=== PATIENT | male | born 1960 | race Caucasian/White ===

== ENCOUNTER 2018-05-08 14:15 | Emergency (ER) | payer OTHER ==
[~2018-05-08] VITALS: Ht 182.9 cm; Wt 77.1 kg
[2018-05-08] MEDS ORDERED: KETOROLAC TROMETHAMINE 60 MG/2 ML VIAL IM NR (14:30)
[2018-05-08] MEDS ORDERED: DICYCLOMINE HCL 20 MG/2 ML VIAL IM ONE (14:30)
--- NOTE | 2018-05-08 14:36 | NUR ---
Pt is given underwear to give support to his testicles.
[2018-05-08 16:04] LABS: BASOPHILS % 0.2 % (0.0-1.0); EOSINOPHILS # (AUTO) 0.1 (0.0-0.4); EOSINOPHILS % 0.7 % (0.0-6.0); HEMATOCRIT 41.1 % (38.2-49.6); HEMOGLOBIN 13.6 g/dL (14.0-18.0); LYMPHOCYTES # (AUTO) 1.3 (1.0-3.2); LYMPHOCYTES % 10.5 % (18.0-39.1); MEAN CORPUSCULAR HEMOGLOBIN 30.6 pg (28-32); MEAN CORPUSCULAR HGB CONC 33.1 g/dL (31-35); MEAN CORPUSCULAR VOLUME 92.4 fL (81-99); MONOCYTES # (AUTO) 1.2 (0.2-0.8); MONOCYTES % 9.4 % (4.4-11.3); NEUTROPHILS # (AUTO) 9.8 (2.1-6.9); NEUTROPHILS % 78.8 % (38.7-80.0); PLATELET COUNT 318 x10e3/uL (140-360); RED BLOOD COUNT 4.45 x10e6/uL (4.3-5.7); RED CELL DISTRIBUTION WIDTH 13.4 % (11.7-14.4)
[2018-05-08 16:19] LABS: BLOOD UREA NITROGEN 10 mg/dL (7-26); BUN/CREATININE RATIO 11 (6-25); CARBON DIOXIDE 24 mmol/L (22-29); CHLORIDE 98 mmol/L (98-107); EST GLOMERULAR FILTRATION RATE > 60 ML/MIN (60-); GLUCOSE 130 mg/dL (74-118); SODIUM 133 mmol/L (136-145)
[2018-05-08] MEDS ORDERED: FENTANYL CITRATE/PF 100MCG/2 ML INJ IV NR (16:45)
--- NOTE | 2018-05-08 17:05 | Diagnostic Imaging Report ---
EXAM: Scrotal Ultrasound INDICATION: Testicular pain. Torsion COMPARISON: None TECHNIQUE: Transverse and longitudinal images were obtained of the scrotum with grayscale imaging, color Doppler and spectral waveform analysis. FINDINGS: Right testis: Size: 4.7 x 2.4 x 2.6 cm, normal in size. Echogenicity: Normal Mass/Cysts: None Left testis: Size: 4.1 x 3.0 x 3.5 cm, normal in size. Echogenicity: Normal Mass/Cysts: None Epididymis: Appearance: Enlarged left epididymal tail measuring 2.0 x 1.4 x 2.2 cm Mass/Cysts: 0.5 cm right epididymal cyst. Extratesticular: Masses: None Fluid collections: Complex hydrocele in the left scrotum measuring approximate 5.1 cm. Doppler: Normal arterial flow to both testes and symmetrical flow on color Doppler evaluation is seen. No evidence of testicular torsion. IMPRESSION: No evidence of testicular torsion. 5.1 cm complex left hydrocele. 0.5 cm right epididymal cyst. Enlarged left epididymal tail. Signed by: Dr. José Oakley M.D. on 05/08/2018 5:02 PM
[2018-05-08] MEDS ORDERED: KETOROLAC TROME10 MG PO (17:59)
[2018-05-08] MEDS ORDERED: FLAGYL500 MG PO (17:59)
[2018-05-08] MEDS ORDERED: ULTRAM50 MG PO (17:59)
[2018-05-08] MEDS ORDERED: LEVAQUIN500 MG PO (17:59)
[2018-05-08] MEDS ORDERED: LEVOFLOXACIN 500 MG TAB PO ONE (18:00)
[2018-05-08] MEDS ORDERED: METRONIDAZOLE 500 MG TAB PO ONE (18:00)
[2018-05-08 18:15] LABS: CLARITY,URINE CLEAR (CLEAR); COLOR,URINE COLORLESS (YELLOW)
[2018-05-08 18:23] LABS: NITRITE,URINE POSITIVE (NEGATIVE)
[2018-05-08 18:24] LABS: BILIRUBIN,URINE NEGATIVE (NEGATIVE); KETONES,URINE NEGATIVE (NEGATIVE); LEUKOCYTE ESTERASE ,URINE 2+ (NEGATIVE); PROTEIN,URINE DIPSTICK NEGATIVE (NEGATIVE); URINE UROBILINOGEN 0.2 mg/dL (0.2 - 1)
[2018-05-08 18:37] LABS: EPITHELIAL CELLS,URINE FEW /LPF
[2018-05-08 18:38] LABS: WBC,URINE (MAN) 21-50 /HPF (0-5)
[2018-05-08 18:39] LABS: BACTERIA,URINE FEW /HPF; RBC,URINE 0-5 /HPF (0-5)
[2018-05-08 18:40] LABS: TRANSITIONAL EPI CELLS,URINE MODERATE
== END 2018-05-08 18:08 | disposition home or self-care (01) ==
LOC: ER 14:15
DX: N50.812 Left testicular pain (principal); N43.3 Hydrocele, unspecified; I10 Essential (primary) hypertension
CPT/HCPCS: 36415; 76870; 80048; 81001; 85025; 93976; 99284; J0500; J1885

== ENCOUNTER 2018-05-10 10:05 | Observation (INO) | payer MEDICARE, OTHER ==
[~2018-05-10] VITALS: Ht 182.9 cm; Wt 77.2 kg
[~2018-05-10 10:05] MED LIST: FLAGYL500 MG PO; KETOROLAC TROME10 MG PO; LEVAQUIN500 MG PO; ULTRAM50 MG PO
--- OUTSIDE RECORDS SUMMARY | 2018-05-10 10:08 | XMS REPORT ---
Author Author [facility] Address Unknown Phone Unavailable Care Team Providers Care Cold Header Name Role Phone Colten MORRISON Unavailable Unavailable Problems This patient has no known problems. Allergies, Adverse Reactions, Alerts This patient has no known allergies or adverse reactions. Medications This patient has no known medications. Results Test Description Test Time Test Comments Text Results Atomic Results Result Comments US TESTICULAR DOPPLER LTD 2018-05-08 16:59:00 [place] [address] Patient Name: CHRISTY MAR II MR #: [id number] : 1960 Age/Sex: 57/M Req #: [id number] Adm Physician: Ordered by: TIMUR MORRISON MD Report #: [id number] Location: ER Room/Bed: Procedure: [id number] US/US TESTICULAR DOPPLER LTD Exam Date: Exam Time: REPORT STATUS: Signed EXAM: Scrotal Ultrasound INDICATION: Testicular pain. T orsion COMPARISON: None TECHNIQUE: Transverse and longitudinal images were obtained of the scrotum with grayscale imaging, color Doppler and spectral waveform analysis. FINDINGS: Right testis: Size: 4.7 x 2.4 x 2.6 cm, normal in size. Echogenicity: Normal Mass/Cysts: None Left testis: Size: 4.1 x 3.0 x 3.5 cm, normal in size. Echogenicity: Normal Mass/Cysts: None Epididymis: Appearance: Enlarged left epididymal tail measuring 2.0 x 1.4 x 2.2 cm Mass/Cysts: 0.5 cm right epididymal cyst. Extratesticular: Masses: None Fluid collections: Complex hydrocele in the left scrotum measuring approximate 5.1 cm. Doppler: Normal arterial flow to both testes and symmetrical flow on color Doppler evaluation is seen. No evidence of testicular torsion. IMPRESSION: No evidence of testicular torsion. 5.1 cm complex left hydrocele. 0.5 cm right epididymal cyst. Enlarged left epididymal tail. Signed by: Dr. José Oakley M.D. on 05/08/2018 5:02 PM Dictated By: JOSÉ OAKLEY MD, MD 01 Transcribed By: MAC on 05/08/181701 COPY TO: TIMUR MORRISON MD TESTICULAR 2018-05-08 16:59:00 [place] [address] Patient Name: CHRISTY MAR II MR #: [id number] : 1960 Age/Sex: 57/M Req #: [id number] Adm Physician: Ordered by: TIMUR MORRISON MD Report #: [id number] Location: Room/Bed: Procedure: [id number] US/US TESTICULAR Exam Date: Exam Time: REPORT STATUS: Signed EXAM: Scrotal Ultrasound INDICATION: Testicular pain. Torsion COMPARISON: None TECHNIQUE: Transverse and longitudinal images were obtained of the scrotum with grayscale imaging, color Doppler and spectral waveform analysis. FINDINGS: Right testis: Size: 4.7 x 2.4 x 2.6 cm, normal in size. Echogenicity: Normal Mass/Cysts: None Left testis: Size: 4.1 x 3.0 x 3.5 cm, normal in size. Echogenicity: Normal Mass/Cysts: None E pididymis: Appearance: Enlarged left epididymal tail measuring 2.0 x 1.4 x 2.2 cm Mass/Cysts: 0.5 cm right epididymal cyst. Extratesticular: Masses: None Fluid collections: Complex hydrocele in the left scrotum measuring approximate 5.1 cm. Doppler: Normal arterial flow to both testes and symmetrical flow on color Doppler evaluation is seen. No evidence of testicular torsion.
[2018-05-10] MEDS ORDERED: MORPHINE SULFATE 2 MG/ML SYR 1ML IV PRN (10:15)
[2018-05-10] MEDS ORDERED: ONDANSETRON HCL INJ 2MG/ML 2ML 2 MG/ML VIAL IV PRN (10:15)
[2018-05-10] MEDS ORDERED: PIPER-TAZ 3.375 GM 50 ML IV STA (10:22)
[2018-05-10] MEDS ORDERED: GENTAMICIN 80MG/NS 100 ML 100 ML IV STA (10:47)
[2018-05-10] MEDS ORDERED: SODIUM CHLORIDE 0.9% 1000ML 1,000 ML ONE (10:54)
--- NOTE | 2018-05-10 10:55 | NUR ---
Patient refusing straight cath at this time. Per Dr. Hilliard, urine must be obtained before starting IV antibiotics. Fluid bolus started at this time. Awaiting urine sample from patient. NATHANIEL Costello notified.
[2018-05-10] MEDS ORDERED: SODIUM CHLORIDE 0.9% 1000ML 1,000 ML IV ONE (11:00)
[2018-05-10] MEDS ORDERED: GENTAMICIN SULFATE 320 MG in SODIUM CHLORIDE 0.9% 100 ML 100 ML IV ONE (11:15)
[2018-05-10] MEDS ORDERED: HYDROMORPHONE 2MG/ML 2 MG/ML ML IV ONE (11:15)
[2018-05-10 11:16] LABS: BASOPHILS % 0.3 % (0.0-1.0); EOSINOPHILS # (AUTO) 0.1 (0.0-0.4); HEMATOCRIT 38.9 % (38.2-49.6); HEMOGLOBIN 12.9 g/dL (14.0-18.0); LYMPHOCYTES # (AUTO) 1.6 (1.0-3.2); LYMPHOCYTES % 14.6 % (18.0-39.1); MEAN CORPUSCULAR HEMOGLOBIN 30.4 pg (28-32); MEAN CORPUSCULAR HGB CONC 33.2 g/dL (31-35); MEAN CORPUSCULAR VOLUME 91.7 fL (81-99); MONOCYTES # (AUTO) 1.3 (0.2-0.8); MONOCYTES % 12.2 % (4.4-11.3); NEUTROPHILS # (AUTO) 7.8 (2.1-6.9); NEUTROPHILS % 71.5 % (38.7-80.0); PLATELET COUNT 316 x10e3/uL (140-360); RED BLOOD COUNT 4.24 x10e6/uL (4.3-5.7); RED CELL DISTRIBUTION WIDTH 13.3 % (11.7-14.4)
--- NOTE | 2018-05-10 11:20 | NUR ---
WALKING ROUNDS WITH REY WHYTE. REPORT RECEIVED. PATIENT CARE ASSUMED
[2018-05-10] MEDS: LEVOFLOXACIN 500MG/D5W 100ML 100 ML IV SCH (11:25)
[2018-05-10 11:35] LABS: ALANINE AMINOTRANSFERASE 41 IU/L (0-55); ALBUMIN 3.5 g/dL (3.5-5.0); ALBUMIN/GLOBULIN RATIO 1.2 (0.8-2.0); ALKALINE PHOSPHATASE 103 IU/L (40-150); ANION GAP 15.5 mmol/L (8-16); BLOOD UREA NITROGEN 17 mg/dL (7-26); BUN/CREATININE RATIO 14 (6-25); CALCIUM 9.1 mg/dL (8.4-10.2); CARBON DIOXIDE 22 mmol/L (22-29); CHLORIDE 102 mmol/L (98-107); CREATININE, SERUM 1.19 mg/dL (0.72-1.25); EST GLOMERULAR FILTRATION RATE > 60 ML/MIN (60-); GLUCOSE 99 mg/dL (74-118); POTASSIUM 3.5 mmol/L (3.5-5.1); SODIUM 136 mmol/L (136-145)
--- NOTE | 2018-05-10 11:42 | NUR ---
PATIENT REPORTS UNABLE TO PROVIDE URINE SAMPLE. REFUSES CATHETER AT THIS TIME
--- NOTE | 2018-05-10 11:50 | NUR ---
PT REPORTS HE FEELS LIKE HIS "SUGAR IS LOW". FSBS CHECK - 108
[2018-05-10] MEDS ORDERED: FENTANYL CITRATE/PF 100MCG/2 ML INJ IV ONE (12:00)
[2018-05-10 13:23] LABS: CLARITY,URINE SL CLOUDY (CLEAR); COLOR,URINE YELLOW (YELLOW)
[2018-05-10 13:24] LABS: BILIRUBIN,URINE NEGATIVE (NEGATIVE); KETONES,URINE NEGATIVE (NEGATIVE); LEUKOCYTE ESTERASE ,URINE 1+ (NEGATIVE); NITRITE,URINE POSITIVE (NEGATIVE); PROTEIN,URINE DIPSTICK NEGATIVE (NEGATIVE); URINE UROBILINOGEN 0.2 mg/dL (0.2 - 1)
[2018-05-10 13:29] LABS: BACTERIA,URINE MODERATE /HPF; WBC,URINE (MAN) 21-50 /HPF (0-5)
--- NOTE | 2018-05-10 14:45 | NUR ---
PT FAMILY CONCERNED OF LEVEL OF PAIN. PHONED DR. GONZALEZ AND LEFT MESSAGE ON HIS VOICEMAIL FOR PAIN MEDICATION ORDER REQUEST
--- NOTE | 2018-05-10 14:53 | NUR ---
PATIENT ASLEEP AND SNORING
--- NOTE | 2018-05-10 15:03 | NUR ---
VERBAL PHONE ORDERS RECEIVED FROM DR. GONZALEZ
[2018-05-10] MEDS ORDERED: TRAMADOL HCL 50 MG TAB PO PRN (15:15)
--- NOTE | 2018-05-10 15:33 | NUR ---
PT FALLS ASLEEP WITH SNORING DURING ASSESSMENT
[2018-05-10 16:15] VITALS: BP 129/80
[2018-05-10 16:24] VITALS: BP 129/80
[2018-05-10] MEDS: HYDROCODONE/APAP 10MG-325MG TAB PO PRN (16:30)
--- NOTE | 2018-05-10 16:30 | NUR ---
Pt received from ER. Alert and oriented x4, laying in bed asking where his dog is. Pt oriented to staff and surroundings. Hawley given as requested, pt refusing to let staff elevate affected area (scrotum) which is red and swollen. Call hernandez within reach. Emotional support given. Will monitor
[2018-05-10 17:02] LABS: AMPHETAMINES SCREEN,URINE POSITIVE (NEGATIVE); BENZODIAZEPINES SCREEN,URINE POSITIVE (NEGATIVE); PHENCYCLIDINE SCREEN,URINE NEGATIVE (NEGATIVE)
--- NOTE | 2018-05-10 19:05 | NUR ---
ROUNDS COMPLETED WITH MORNING NURSE. PT ALERT AND ORIENT TO PERSON, PLACE, TIME, AND SITUATION. AGITATED AND ANXIOUS. C/O 10/10 TESTICULAR PAIN. TESTICLES RED AND SWOLLEN. NO ACUTE DISTRESS NOTED. BED LOCKED AND LOWEST POSITION. CALL LIGHT WITHIN REACH. WILL CONTINUE TO MONITOR.
[2018-05-10] MEDS ORDERED: KETOROLAC TROMETHAMINE 30 MG/ML VIAL IV PRN (19:45)
--- NOTE | 2018-05-10 19:45 | NUR ---
SPOKE WITH DR. GONZALEZ REGARDING PTs TESTICULAR PAIN. ORDERED TORADOL 15MG INJ EVERY 6 HOURS PRN PAIN.
[2018-05-10 20:00] VITALS: BP 122/79
[2018-05-10 20:10] VITALS: BP 122/79
[2018-05-11] VITALS: BP 132/81
[2018-05-11] MEDS: HYDROCODONE/APAP 10MG-325MG TAB PO PRN ×2 (00:56→07:30)
[2018-05-11 04:00] VITALS: BP 120/81
[2018-05-11 06:50] LABS: BASOPHILS # (AUTO) 0.1 (0.0-0.1); BASOPHILS % 0.9 % (0.0-1.0); EOSINOPHILS # (AUTO) 0.3 (0.0-0.4); HEMATOCRIT 40.6 % (38.2-49.6); HEMOGLOBIN 13.2 g/dL (14.0-18.0); LYMPHOCYTES # (AUTO) 1.5 (1.0-3.2); LYMPHOCYTES % 26.2 % (18.0-39.1); MEAN CORPUSCULAR HEMOGLOBIN 30.5 pg (28-32); MEAN CORPUSCULAR HGB CONC 32.5 g/dL (31-35); MEAN CORPUSCULAR VOLUME 93.8 fL (81-99); MONOCYTES # (AUTO) 0.9 (0.2-0.8); MONOCYTES % 15.3 % (4.4-11.3); NEUTROPHILS # (AUTO) 2.9 (2.1-6.9); NEUTROPHILS % 51.1 % (38.7-80.0); PLATELET COUNT 337 x10e3/uL (140-360); RED BLOOD COUNT 4.33 x10e6/uL (4.3-5.7); RED CELL DISTRIBUTION WIDTH 13.5 % (11.7-14.4)
[2018-05-11 07:11] LABS: ALANINE AMINOTRANSFERASE 36 IU/L (0-55); ALBUMIN/GLOBULIN RATIO 0.9 (0.8-2.0); ALKALINE PHOSPHATASE 78 IU/L (40-150); ANION GAP 13.8 mmol/L (8-16); BLOOD UREA NITROGEN 14 mg/dL (7-26); BUN/CREATININE RATIO 17 (6-25); CALCIUM 8.5 mg/dL (8.4-10.2); CARBON DIOXIDE 21 mmol/L (22-29); CHLORIDE 107 mmol/L (98-107); CREATININE, SERUM 0.83 mg/dL (0.72-1.25); EST GLOMERULAR FILTRATION RATE > 60 ML/MIN (60-); GLUCOSE 106 mg/dL (74-118); POTASSIUM 3.8 mmol/L (3.5-5.1); SODIUM 138 mmol/L (136-145)
[2018-05-11 07:30] VITALS: BP 135/100
--- NOTE | 2018-05-11 07:30 | NUR ---
PATIENT JUST ARRIVED TO THE ROOM AT THIS TIME. ALERT AND VERBALLY RESPONSIVE. C/O PAIN TO SCROTUM, PAIN MEDICATION ADMINISTERED ORDERED. REQUESTED AND RECEIVED A CUP OF COFFEE. BED IN LOWER POSITION, CALL LIGHT AT REACH.
[2018-05-11 07:53] VITALS: BP 135/100
[2018-05-11] MEDS ORDERED: KETOROLAC TROMETHAMINE 30 MG/ML VIAL IV STA (09:01)
[2018-05-11] MEDS ORDERED: OMEPRAZOLE 20 MG CAP PO SCH (09:15)
[2018-05-11] MEDS ORDERED: HYDROCODONE/APAP 10MG-325MG TAB PO PRN (09:15)
[2018-05-11] MEDS ORDERED: CELECOXIB 200 MG CAP PO SCH (09:15)
[2018-05-11] MEDS ORDERED: PIPER-TAZ 3.375 GM 50 ML IV SCH (09:15)
[2018-05-11] MEDS ORDERED: SODIUM CHLORIDE 0.9% 250ML 250 ML ONE (09:49)
[2018-05-11] MEDS ORDERED: CLINDAMYCIN 300MG 50 ML IV SCH (10:00)
[2018-05-11] MEDS ORDERED: PANTOPRAZOLE SOD 40 MG TABEC PO SCH (10:00)
[2018-05-11] MEDS: LEVOFLOXACIN 500MG/D5W 100ML 100 ML IV SCH (11:30)
[2018-05-11 11:55] VITALS: BP 104/84
--- NOTE | 2018-05-11 12:00 | NUR ---
PATIENT ASSISTED WITH SHOWER AND BACK TO BED, WARM BLANKET PROVIDED. IV ANTIBIOTIC INFUSING ORDERED. BED IN LOWER POSITION, CALL LIGHT AT REACH.
--- NOTE | 2018-05-11 14:25 | NUR ---
IV TO RIGHT FOREARM REMOVED WITH TIP INTACT. LEFT UNIT WITH ALL PERSONAL ITEMS.
--- NOTE | 2018-05-11 14:25 | NUR ---
PATIENT REPORTED TO THE NURSE THAT HE WANT TO GO OUTSIDE AND SMOKE. EDUCATED ON THE IMPORTANCE OF QUITTING SMOKING. PATIENT STATED THAT: " YOU PEOPLE DON'T WANT TO GIVE ME METHADONE OR DEMEROL AND YOU DON'T WANT ME TO SMOKE. I AM GOING HOME, AND I WILL GET WHAT I WANT".
--- NOTE | 2018-05-11 14:27 | NUR ---
PATIENT REFUSED TO SIGN THE AMA PAPER, THIS WAS WITNESSED BY THE FLYER REPAIRER.
--- NOTE | 2018-05-11 14:40 | NUR ---
NOTIFIED OF PATIENT LEAVING AMA.
== END 2018-05-11 14:57 | disposition left against medical advice (07) ==
LOC: ER 10:05 → ERHOLD 10:12 → MED/SURG3 16:18
PROVIDERS: ADMIT Internal Medicine; ATTEND Internal Medicine
DX: N45.3 Epididymo-orchitis (principal); N50.812 Left testicular pain
CPT/HCPCS: 36415 ×2; 80053 ×2; 80307; 81001; 82948; 83605; 85025 ×2; 87040; 87086; 99284; G0378 ×2; J1170; J1580; J1885; J1956 ×2; J2405; J7030; J7050; S0164

== ENCOUNTER 2020-04-06 11:30 | Emergency (ER) | payer MEDICARE ==
[~2020-04-06] VITALS: Ht 175.3 cm; Wt 79.4 kg
[2020-04-06] MEDS ORDERED: SODIUM CHLORIDE 0.9% 1000ML 1,000 ML IV STA (11:43)
[2020-04-06] MEDS ORDERED: ONDANSETRON HCL INJ 2MG/ML 2ML 2 MG/ML VIAL IV STA (11:43)
[2020-04-06] MEDS ORDERED: KETOROLAC TROMETHAMINE 30 MG/ML VIAL IV STA (11:43)
[2020-04-06 12:01] LABS: BASOPHILS # (AUTO) 0.1 (0.0-0.1); BASOPHILS % 0.7 % (0.0-1.0); EOSINOPHILS # (AUTO) 0.1 (0.0-0.4); EOSINOPHILS % 1.1 % (0.0-6.0); HEMATOCRIT 46.2 % (38.2-49.6); HEMOGLOBIN 15.2 g/dL (14.0-18.0); LYMPHOCYTES # (AUTO) 1.8 (1.0-3.2); LYMPHOCYTES % 24.8 % (18.0-39.1); MEAN CORPUSCULAR HEMOGLOBIN 30.5 pg (28-32); MEAN CORPUSCULAR HGB CONC 32.9 g/dL (31-35); MEAN CORPUSCULAR VOLUME 92.8 fL (81-99); MONOCYTES # (AUTO) 0.6 (0.2-0.8); MONOCYTES % 8.4 % (4.4-11.3); NEUTROPHILS # (AUTO) 4.8 (2.1-6.9); NEUTROPHILS % 64.7 % (38.7-80.0); PLATELET COUNT 312 x10e3/uL (140-360); RED BLOOD COUNT 4.98 x10e6/uL (4.3-5.7)
[2020-04-06 12:20] LABS: ALANINE AMINOTRANSFERASE 11 IU/L (0-55); ALBUMIN/GLOBULIN RATIO 1.1 (0.8-2.0); ALKALINE PHOSPHATASE 102 IU/L (40-150); ANION GAP 14.3 mmol/L (8-16); BLOOD UREA NITROGEN 12 mg/dL (7-26); BUN/CREATININE RATIO 15 (6-25); CALCIUM 9.3 mg/dL (8.4-10.2); CARBON DIOXIDE 25 mmol/L (22-29); CHLORIDE 105 mmol/L (98-107); CREATINE KINASE 68 IU/L (30-200); CREATININE, SERUM 0.82 mg/dL (0.72-1.25); EST GLOMERULAR FILTRATION RATE > 60 ML/MIN (60-); GLUCOSE 106 mg/dL (74-118); POTASSIUM 4.3 mmol/L (3.5-5.1); SODIUM 140 mmol/L (136-145)
[2020-04-06] MEDS ORDERED: IOPAMIDOL 370 MG/ML 200 ML INFUS..BTL INJ ONE (12:33)
[2020-04-06] MEDS ORDERED: SODIUM CHLORIDE 0.9% 50ML 50 ML ONE (12:33)
[2020-04-06 13:35] VITALS: BP 139/65
== END 2020-04-06 13:36 | disposition home or self-care (01) ==
LOC: ER 11:52
DX: R10.11 Right upper quadrant pain (principal); J44.9 Chronic obstructive pulmonary disease, unspecified
CPT/HCPCS: 36415; 74177; 80053; 82550; 82553; 83690; 84484; 85025; 99284; J1885; J2405; Q9967

== ENCOUNTER 2021-04-05 12:20 | Inpatient (IN) | payer MEDICARE ==
[~2021-04-05] VITALS: Ht 182.9 cm; Wt 102.3 kg
[2021-04-05] MEDS ORDERED: DEXAMETHASONE SOD PHOS 10 MG/1 ML VIAL IV ONE (13:00)
[2021-04-05] MEDS: ONDANSETRON HCL INJ 2MG/ML 2ML 2 MG/ML VIAL IV PRN ×2 (13:01→16:02)
[2021-04-05] MEDS: HYDROMORPHONE 1MG/1ML INJ IV PRN ×3 (13:14→19:18)
[2021-04-05] MEDS ORDERED: HYDROMORPHONE 1MG/1ML INJ IV PRN (14:15)
[2021-04-05] MEDS ORDERED: ONDANSETRON HCL INJ 2MG/ML 2ML 2 MG/ML VIAL IV PRN (14:15)
[2021-04-05] MEDS: KETOROLAC TROMETHAMINE 30 MG/ML VIAL IV PRN (16:02)
[2021-04-05 19:33] VITALS: BP 180/96
[2021-04-05 23:00] VITALS: BP 180/96
[2021-04-06] VITALS: BP 126/66
[2021-04-06] MEDS: HYDROMORPHONE 1MG/1ML INJ IV PRN ×8 (00:04→20:45)
[2021-04-06] MEDS: KETOROLAC TROMETHAMINE 30 MG/ML VIAL IV PRN (02:00)
[2021-04-06] MEDS: ONDANSETRON HCL INJ 2MG/ML 2ML 2 MG/ML VIAL IV PRN (06:32)
[2021-04-06 07:53] VITALS: BP 150/79
[2021-04-06 08:38] VITALS: BP 150/79
[2021-04-06] MEDS: PANTOPRAZOLE SOD 40 MG TABEC PO SCH (08:45)
[2021-04-06 09:09] LABS: BASOPHILS % 0.1 % (0.0-1.0); HEMATOCRIT 42.2 % (38.2-49.6); HEMOGLOBIN 13.8 g/dL (14.0-18.0); LYMPHOCYTES # (AUTO) 0.9 (1.0-3.2); LYMPHOCYTES % 6.6 % (18.0-39.1); MEAN CORPUSCULAR HEMOGLOBIN 30.4 pg (28-32); MEAN CORPUSCULAR HGB CONC 32.7 g/dL (31-35); MONOCYTES # (AUTO) 1.5 (0.2-0.8); MONOCYTES % 10.7 % (4.4-11.3); NEUTROPHILS # (AUTO) 11.8 (2.1-6.9); PLATELET COUNT 273 x10e3/uL (140-360); RED BLOOD COUNT 4.54 x10e6/uL (4.3-5.7)
[2021-04-06] MEDS ORDERED: MAGNESIUM HYDROXIDE 30 ML UDC PO PRN (09:15)
[2021-04-06] MEDS ORDERED: ALBUTEROL/IPRATROPIUM 3 ML NEB NEB PRN (09:15)
[2021-04-06] MEDS: GABAPENTIN 100 MG CAP PO SCH ×3 (09:30→21:00)
[2021-04-06 09:54] LABS: ANION GAP 14.6 mmol/L (8-16); CALCIUM 9.7 mg/dL (8.4-10.2); CREATININE, SERUM 0.89 mg/dL (0.72-1.25); POTASSIUM 3.6 mmol/L (3.5-5.1)
[2021-04-06] MEDS ORDERED: AMLODIPINE BESYLATE 10 MG TAB PO ONE (10:00)
[2021-04-06] MEDS: DEXAMETHASONE SOD PHOS INJ 4 MG/ML SDV IV SCH ×2 (10:25→17:28)
[2021-04-06] MEDS: SENNA-S TABLET PO SCH ×2 (10:26→17:00)
[2021-04-06] MEDS ORDERED: TAMSULOSIN HCL 0.4 MG CAP PO SCH (10:30)
[2021-04-06 11:41] VITALS: BP 147/89
[2021-04-06 16:05] VITALS: BP 141/79
[2021-04-06] MEDS: ENOXAPARIN SOD INJ 40 MG/0.4 ML SYR SC SCH (17:28)
[2021-04-06 20:00] VITALS: BP 156/84
[2021-04-06] MEDS: TAMSULOSIN HCL 0.4 MG CAP PO SCH (21:00)
[2021-04-07] VITALS (9 sets, daily range): BP systolic 136–159; BP diastolic 81–99
[2021-04-07] MEDS: HYDROMORPHONE 1MG/1ML INJ IV PRN ×8 (00:01→23:53)
[2021-04-07] MEDS: KETOROLAC TROMETHAMINE 30 MG/ML VIAL IV PRN ×2 (05:53→22:40)
[2021-04-07] MEDS: PANTOPRAZOLE SOD 40 MG TABEC PO SCH (06:48)
[2021-04-07] MEDS: SENNA-S TABLET PO SCH ×2 (09:00→17:00)
[2021-04-07] MEDS: AMLODIPINE BESYLATE 10 MG TAB PO SCH (09:00)
[2021-04-07] MEDS: DEXAMETHASONE SOD PHOS INJ 4 MG/ML SDV IV SCH ×2 (09:00→17:00)
[2021-04-07] MEDS: GABAPENTIN 100 MG CAP PO SCH ×3 (09:00→20:48)
[2021-04-07] MEDS ORDERED: MAGNESIUM HYDROXIDE 30 ML UDC PO ONE (10:30)
[2021-04-07 15:01] LABS: INR 0.96; PROTHROMBIN TIME 13.5 seconds (11.9-14.5)
[2021-04-07 15:02] LABS: PARTIAL THROMBOPLASTIN TIME 24.4 seconds (23.8-35.5)
[2021-04-07] MEDS: ENOXAPARIN SOD INJ 40 MG/0.4 ML SYR SC SCH (17:00)
[2021-04-07] MEDS: TAMSULOSIN HCL 0.4 MG CAP PO SCH (20:48)
[2021-04-08] VITALS (8 sets, daily range): BP systolic 128–160; BP diastolic 76–97
[2021-04-08] MEDS: HYDROMORPHONE 1MG/1ML INJ IV PRN (05:25)
[2021-04-08] MEDS ORDERED: LIDOCAINE 1% W/EPINEPHRINE 20 ML VIAL ONE (06:37)
[2021-04-08] MEDS ORDERED: THROMBIN FOR SOLN 5,000 UNIT VIAL ONE (06:38)
[2021-04-08] MEDS ORDERED: Vancomycin IV 1 GM VIAL ONE (06:38)
[2021-04-08] MEDS ORDERED: ONDANSETRON HCL 4 MG ORAL DISINTEGRATING TAB PO PRN (07:15)
[2021-04-08] MEDS: PANTOPRAZOLE SOD 40 MG TABEC PO SCH (07:30)
[2021-04-08] MEDS: AMLODIPINE BESYLATE 10 MG TAB PO SCH (09:00)
[2021-04-08] MEDS: GABAPENTIN 100 MG CAP PO SCH ×3 (09:00→21:00)
[2021-04-08] MEDS: DEXAMETHASONE SOD PHOS INJ 4 MG/ML SDV IV SCH ×2 (09:00→17:00)
[2021-04-08] MEDS: SENNA-S TABLET PO SCH ×2 (09:00→17:00)
[2021-04-08] MEDS ORDERED: SODIUM CHLORIDE 0.9% 100 ML ONE (10:56)
[2021-04-08] MEDS ORDERED: ACETAMINOPHEN 325 MG TAB PO PRN (11:45)
[2021-04-08] MEDS ORDERED: Morphine 10mg syringe 10 MG/ML INJ IM PRN (11:45)
[2021-04-08] MEDS ORDERED: ONDANSETRON HCL INJ 2MG/ML 2ML 2 MG/ML VIAL IV PRN (11:45)
[2021-04-08] MEDS ORDERED: PROMETHAZINE HCL (IM) 25 MG/ML VIAL IM PRN (11:45)
[2021-04-08] MEDS ORDERED: ZOLPIDEM TARTRATE 5 MG TAB PO PRN (11:45)
[2021-04-08] MEDS ORDERED: MAGNESIUM/ALUMINUM/SIMETHICONE 30 ML UDC PO PRN (11:45)
[2021-04-08] MEDS ORDERED: CEPACOL SORE THROAT LOZENGES PO PRN (11:45)
[2021-04-08] MEDS ORDERED: DEXAMETHASONE SOD PHOS INJ 4 MG/ML SDV ONE (11:57)
[2021-04-08] MEDS ORDERED: ROCURONIUM BROMIDE 10 MG/ML 5ML VIAL IV ONE (11:57)
[2021-04-08] MEDS ORDERED: POVIDONE IODINE 0.05% 0.05 % ML PO ONE (11:57)
[2021-04-08] MEDS ORDERED: ONDANSETRON HCL INJ 2MG/ML 2ML 2 MG/ML VIAL ONE (11:57)
[2021-04-08] MEDS ORDERED: SEVOFLURANE INHAL SOLN 250 ML PEN BTL ONE (11:57)
[2021-04-08] MEDS ORDERED: PROPOFOL IV EMULSION 10 MG/ML 20 ML VIAL ONE (11:57)
[2021-04-08] MEDS ORDERED: LIDOCAINE HCL 2% LOCAL INJ 5 ML SDV VIAL INJ ONE (11:57)
[2021-04-08] MEDS ORDERED: FENTANYL CITRATE/PF 100MCG/2 ML INJ ONE ×2 (12:16→14:33)
[2021-04-08] MEDS ORDERED: HYDROMORPHONE 2MG/ML 2 MG/ML ML ONE (12:36)
[2021-04-08] MEDS: HYDROMORPHONE 2MG/ML 2 MG/ML ML IV PRN ×3 (13:46→23:26)
[2021-04-08] MEDS ORDERED: Cefazolin 1 GM in SODIUM CHLORIDE 0.9% 50ML 50 ML IV SCH (14:00)
[2021-04-08] MEDS ORDERED: MIDAZOLAM HCL 2 MG/2 ML VIAL ONE (14:33)
[2021-04-08] MEDS: CARISOPRODOL 350 MG TAB PO PRN ×2 (14:47→21:20)
[2021-04-08] MEDS: OXYCODONE/ACETAMINOPHEN 5-325 1 EACH TABLET PO PRN ×3 (15:00→15:40)
[2021-04-08] MEDS: LACTATED RINGER'S 1,000 ML IV SCH ×2 (15:30→20:05)
[2021-04-08] MEDS: Cefazolin 1 GM in SODIUM CHLORIDE 0.9% 50ML 50 ML IV SCH ×2 (16:00→23:26)
[2021-04-08] MEDS: ENOXAPARIN SOD INJ 40 MG/0.4 ML SYR SC SCH (17:00)
[2021-04-08] MEDS: KETOROLAC TROMETHAMINE 30 MG/ML VIAL IV PRN (21:35)
[2021-04-08] MEDS: TAMSULOSIN HCL 0.4 MG CAP PO SCH (21:37)
[2021-04-09] VITALS: BP 155/92
[2021-04-09] MEDS: LACTATED RINGER'S 1,000 ML IV SCH ×2 (00:47→12:27)
[2021-04-09] MEDS: HYDROMORPHONE 2MG/ML 2 MG/ML ML IV PRN ×2 (03:41→08:23)
[2021-04-09 04:00] VITALS: BP 148/98
[2021-04-09] MEDS: CARISOPRODOL 350 MG TAB PO PRN ×2 (05:07→09:53)
[2021-04-09] MEDS: Cefazolin 1 GM in SODIUM CHLORIDE 0.9% 50ML 50 ML IV SCH (05:07)
[2021-04-09 05:50] VITALS: BP 154/91
[2021-04-09 06:27] LABS: BASOPHILS % 0.2 % (0.0-1.0); EOSINOPHILS % 0.1 % (0.0-6.0); HEMATOCRIT 41.2 % (38.2-49.6); LYMPHOCYTES # (AUTO) 1.7 (1.0-3.2); LYMPHOCYTES % 13.1 % (18.0-39.1); MEAN CORPUSCULAR HGB CONC 31.6 g/dL (31-35); MEAN CORPUSCULAR VOLUME 95.2 fL (81-99); MONOCYTES # (AUTO) 1.4 (0.2-0.8); MONOCYTES % 11.3 % (4.4-11.3); NEUTROPHILS # (AUTO) 9.5 (2.1-6.9); NEUTROPHILS % 74.5 % (38.7-80.0); PLATELET COUNT 284 x10e3/uL (140-360); RED BLOOD COUNT 4.33 x10e6/uL (4.3-5.7); RED CELL DISTRIBUTION WIDTH 13.2 % (11.7-14.4)
[2021-04-09 06:37] LABS: ANION GAP 14.1 mmol/L (8-16); CALCIUM 8.8 mg/dL (8.4-10.2); CREATININE, SERUM 0.89 mg/dL (0.72-1.25); POTASSIUM 4.1 mmol/L (3.5-5.1)
[2021-04-09 08:09] VITALS: BP 154/99
[2021-04-09] MEDS: SENNA-S TABLET PO SCH (08:22)
[2021-04-09] MEDS: DEXAMETHASONE SOD PHOS INJ 4 MG/ML SDV IV SCH (08:22)
[2021-04-09] MEDS: PANTOPRAZOLE SOD 40 MG TABEC PO SCH (08:22)
[2021-04-09] MEDS: GABAPENTIN 100 MG CAP PO SCH (08:22)
[2021-04-09] MEDS: AMLODIPINE BESYLATE 10 MG TAB PO SCH (08:22)
[2021-04-09 08:32] VITALS: BP 154/99
[2021-04-09 11:25] VITALS: BP 150/115
== END 2021-04-09 11:10 | disposition home or self-care (01) | DRG 517 ==
LOC: ER 12:26 → ERHOLD 14:13 → MED/SURG 19:46
PROVIDERS: ADMIT Internal Medicine; ATTEND Internal Medicine
PROC: 01NB0ZZ Release Lumbar Nerve, Open Approach (ICD-10-PCS; principal; 2021-04-08 10:23)
DX: M51.16 Intervertebral disc disorders with radiculopathy, lumbar region (principal); M48.062 Spinal stenosis, lumbar region with neurogenic claudication; I10 Essential (primary) hypertension; J44.9 Chronic obstructive pulmonary disease, unspecified; I16.0 Hypertensive urgency; Z88.5 Allergy status to narcotic agent; Z88.0 Allergy status to penicillin; Z96.651 Presence of right artificial knee joint; I95.89 Other hypotension; D72.829 Elevated white blood cell count, unspecified; Z20.822 Contact with and (suspected) exposure to COVID-19
CPT/HCPCS: 36415; 71045; 72020; 72110; 72131; 72148; 80048; 85025; 85610; 85730; 88304; 88311; 94799; 96367; 96376; 97139; 99284; J0690; J1100; J1170; J1650; J1885; J2001; J2250; J2405; J3010; J3370; J7050; J7121; U0002

== ENCOUNTER 2021-04-18 15:00 | Inpatient (IN) | payer MEDICARE ==
[~2021-04-18] VITALS: Ht 182.9 cm; Wt 106.6 kg
[2021-04-18] MEDS ORDERED: TIZANIDINE HCL4 M1 PO (15:25)
[2021-04-18] MEDS ORDERED: DOCUSATE SODIU100 MG PO (15:25)
[2021-04-18] MEDS ORDERED: CEPHALEXIN500 MG PO (15:25)
[2021-04-18] MEDS ORDERED: AMLODIPINE BESY10 MG PO (15:25)
[2021-04-18] MEDS ORDERED: CELEBREX200 MG PO (15:25)
[2021-04-18] MEDS ORDERED: KETOROLAC TROMETHAMINE 30 MG/ML VIAL IV STA (15:47)
[2021-04-18] MEDS ORDERED: SODIUM CHLORIDE 0.9% 1000ML 1,000 ML IV STA (15:47)
[2021-04-18] MEDS ORDERED: ONDANSETRON HCL INJ 2MG/ML 2ML 2 MG/ML VIAL IV STA (15:47)
[2021-04-18 16:14] LABS: BASOPHILS # (AUTO) 0.1 (0.0-0.1); BASOPHILS % 0.4 % (0.0-1.0); EOSINOPHILS # (AUTO) 0.1 (0.0-0.4); EOSINOPHILS % 0.4 % (0.0-6.0); HEMATOCRIT 44.9 % (38.2-49.6); HEMOGLOBIN 14.4 g/dL (14.0-18.0); LYMPHOCYTES # (AUTO) 1.5 (1.0-3.2); LYMPHOCYTES % 11.1 % (18.0-39.1); MEAN CORPUSCULAR HEMOGLOBIN 30.2 pg (28-32); MEAN CORPUSCULAR HGB CONC 32.1 g/dL (31-35); MEAN CORPUSCULAR VOLUME 94.1 fL (81-99); MONOCYTES # (AUTO) 1.5 (0.2-0.8); MONOCYTES % 11.1 % (4.4-11.3); NEUTROPHILS # (AUTO) 10.1 (2.1-6.9); NEUTROPHILS % 76.5 % (38.7-80.0); PLATELET COUNT 359 x10e3/uL (140-360); RED BLOOD COUNT 4.77 x10e6/uL (4.3-5.7); RED CELL DISTRIBUTION WIDTH 13.4 % (11.7-14.4)
[2021-04-18 16:24] LABS: INR 1.03; PROTHROMBIN TIME 14.2 seconds (11.9-14.5)
[2021-04-18 16:25] LABS: PARTIAL THROMBOPLASTIN TIME 26.7 seconds (23.8-35.5)
[2021-04-18] MEDS ORDERED: HYDROMORPHONE 1MG/1ML INJ IV ONE (16:30)
[2021-04-18 16:31] LABS: ALBUMIN 3.8 g/dL (3.5-5.0); ALBUMIN/GLOBULIN RATIO 0.9 (0.8-2.0); ANION GAP 14.1 mmol/L (8-16); CALCIUM 9.5 mg/dL (8.4-10.2); CREATININE, SERUM 0.87 mg/dL (0.72-1.25); POTASSIUM 4.1 mmol/L (3.5-5.1)
[2021-04-18] MEDS ORDERED: SODIUM CHLORIDE 0.9% 50ML 50 ML ONE (17:03)
[2021-04-18] MEDS ORDERED: IOPAMIDOL 370 MG/ML 200 ML INFUS..BTL INJ ONE (17:03)
[2021-04-18] MEDS ORDERED: ONDANSETRON HCL INJ 2MG/ML 2ML 2 MG/ML VIAL IV PRN (18:00)
[2021-04-18] MEDS: Morphine 4mg Syringe 4 MG/ML INJ IV PRN (19:50)
[2021-04-18 20:00] VITALS: BP 148/98
[2021-04-18 20:40] VITALS: BP 148/98
[2021-04-19] VITALS (9 sets, daily range): BP systolic 131–165; BP diastolic 83–100
[2021-04-19] MEDS: Morphine 4mg Syringe 4 MG/ML INJ IV PRN ×5 (00:05→19:33)
[2021-04-19 05:35] LABS: BASOPHILS % 0.5 % (0.0-1.0); EOSINOPHILS # (AUTO) 0.2 (0.0-0.4); EOSINOPHILS % 2.4 % (0.0-6.0); HEMATOCRIT 40.6 % (38.2-49.6); HEMOGLOBIN 12.7 g/dL (14.0-18.0); LYMPHOCYTES # (AUTO) 1.7 (1.0-3.2); LYMPHOCYTES % 21.5 % (18.0-39.1); MEAN CORPUSCULAR HGB CONC 31.3 g/dL (31-35); MONOCYTES # (AUTO) 1.3 (0.2-0.8); MONOCYTES % 16.5 % (4.4-11.3); NEUTROPHILS # (AUTO) 4.7 (2.1-6.9); NEUTROPHILS % 58.6 % (38.7-80.0); PLATELET COUNT 309 x10e3/uL (140-360); RED BLOOD COUNT 4.23 x10e6/uL (4.3-5.7); RED CELL DISTRIBUTION WIDTH 13.6 % (11.7-14.4)
[2021-04-19 05:56] LABS: ANION GAP 9.8 mmol/L (8-16); CALCIUM 8.7 mg/dL (8.4-10.2); CREATININE, SERUM 0.8 mg/dL (0.72-1.25); POTASSIUM 3.8 mmol/L (3.5-5.1)
[2021-04-19] MEDS ORDERED: MAGNESIUM HYDROXIDE 30 ML UDC PO PRN (08:30)
[2021-04-19] MEDS ORDERED: HYDRALAZINE HCL 25 MG TAB PO PRN (08:30)
[2021-04-19] MEDS: KETOROLAC TROMETHAMINE 30 MG/ML VIAL IV PRN ×2 (08:51→20:47)
[2021-04-19] MEDS: HYDROCODONE/APAP 10MG-325MG TAB PO PRN ×3 (08:51→22:28)
[2021-04-19] MEDS: CELECOXIB 100 MG CAP PO SCH ×2 (08:51→16:26)
[2021-04-19] MEDS: DEXAMETHASONE SOD PHOS INJ 4 MG/ML SDV IV SCH ×2 (08:52→20:47)
[2021-04-19] MEDS: ONDANSETRON HCL INJ 2MG/ML 2ML 2 MG/ML VIAL IV PRN ×2 (08:53→13:12)
[2021-04-19] MEDS ORDERED: DEXAMETHASONE SOD PHOS 10 MG/1 ML VIAL IV SCH (09:00)
[2021-04-19] MEDS: SENNA-S TABLET PO SCH ×2 (10:04→16:26)
[2021-04-19] MEDS: AMLODIPINE BESYLATE 10 MG TAB PO SCH (10:04)
[2021-04-19] MEDS: GABAPENTIN 100 MG CAP PO SCH ×3 (10:04→20:47)
[2021-04-19] MEDS: ENOXAPARIN SOD INJ 40 MG/0.4 ML SYR SC SCH (16:26)
[2021-04-19] MEDS: TIZANIDINE HCL 4 MG TAB PO PRN (20:47)
[2021-04-19] MEDS: NICOTINE 21 MG/EA PATCH TOP PRN (20:47)
[2021-04-20] VITALS (9 sets, daily range): BP systolic 129–157; BP diastolic 79–95
[2021-04-20] MEDS: Morphine 4mg Syringe 4 MG/ML INJ IV PRN ×4 (00:14→20:30)
[2021-04-20] MEDS: SENNA-S TABLET PO SCH ×2 (08:15→17:31)
[2021-04-20] MEDS: CELECOXIB 100 MG CAP PO SCH ×2 (08:15→17:31)
[2021-04-20] MEDS: DEXAMETHASONE SOD PHOS INJ 4 MG/ML SDV IV SCH ×2 (08:15→21:47)
[2021-04-20] MEDS: GABAPENTIN 100 MG CAP PO SCH ×3 (08:15→21:47)
[2021-04-20] MEDS: HYDROCODONE/APAP 10MG-325MG TAB PO PRN ×3 (08:32→21:48)
[2021-04-20] MEDS: AMLODIPINE BESYLATE 10 MG TAB PO SCH (08:32)
[2021-04-20] MEDS: ONDANSETRON HCL INJ 2MG/ML 2ML 2 MG/ML VIAL IV PRN ×2 (11:20→20:30)
[2021-04-20] MEDS: KETOROLAC TROMETHAMINE 30 MG/ML VIAL IV PRN ×2 (15:39→21:48)
[2021-04-20] MEDS: ENOXAPARIN SOD INJ 40 MG/0.4 ML SYR SC SCH (17:31)
[2021-04-20] MEDS: TIZANIDINE HCL 4 MG TAB PO PRN (21:48)
[2021-04-20] MEDS: NICOTINE 21 MG/EA PATCH TOP PRN (21:48)
[2021-04-21 00:10] VITALS: BP 160/87
[2021-04-21] MEDS: Morphine 4mg Syringe 4 MG/ML INJ IV PRN ×3 (00:16→08:53)
[2021-04-21 04:10] VITALS: BP 148/78
[2021-04-21] MEDS: HYDROCODONE/APAP 10MG-325MG TAB PO PRN (06:12)
[2021-04-21] MEDS: TIZANIDINE HCL 4 MG TAB PO PRN (06:12)
[2021-04-21 08:15] VITALS: BP 183/95
[2021-04-21] MEDS: CELECOXIB 100 MG CAP PO SCH (08:49)
[2021-04-21] MEDS: GABAPENTIN 100 MG CAP PO SCH (08:50)
[2021-04-21] MEDS: AMLODIPINE BESYLATE 10 MG TAB PO SCH (08:51)
[2021-04-21] MEDS: SENNA-S TABLET PO SCH (08:51)
[2021-04-21] MEDS: DEXAMETHASONE SOD PHOS INJ 4 MG/ML SDV IV SCH (08:52)
[2021-04-21] MEDS: ONDANSETRON HCL INJ 2MG/ML 2ML 2 MG/ML VIAL IV PRN (08:53)
[2021-04-21 08:56] VITALS: BP 183/95
== END 2021-04-21 11:37 | disposition home or self-care (01) | DRG 948 ==
LOC: ER 15:39 → ERHOLD 17:47 → MED/SURG 19:00 → OBSVTOIN 04-19 09:18
PROVIDERS: ADMIT Internal Medicine; ATTEND Internal Medicine
DX: G89.18 Other acute postprocedural pain (principal); M54.40 Lumbago with sciatica, unspecified side; M48.061 Spinal stenosis, lumbar region without neurogenic claudication; Z88.0 Allergy status to penicillin; M51.36 Other intervertebral disc degeneration, lumbar region; Z98.890 Other specified postprocedural states; Z20.822 Contact with and (suspected) exposure to COVID-19
CPT/HCPCS: 36415; 72148; 80048; 80053; 85025; 85610; 85730; 94799; 97139; 99284; G0378; J1100; J1170; J1650; J1885; J2270; J2405; J7030; Q9967; U0002

== ENCOUNTER 2024-10-12 23:57 | Emergency (ER) | payer MEDICARE ==
[~2024-10-12] VITALS: Ht 182.9 cm; Wt 106.6 kg
[~2024-10-12 23:57] MED LIST changes: +AMLODIPINE BESY10 MG PO; +AZITHROMYCIN250 MG PO; +CELEBREX200 MG PO; +CEPHALEXIN500 MG PO; +DOCUSATE SODIU100 MG PO; +MEDROL4 M2 PO; +NAPROSYN500 MG PO; +TIZANIDINE HCL4 M1 PO
[2024-10-13 00:23] LABS: BASOPHILS % 0.6 % (0.0-1.0); EOSINOPHILS % 2.7 % (0.0-6.0); LYMPHOCYTES % 28.6 % (18.0-39.1); MONOCYTES % 12.2 % (4.4-11.3); NEUTROPHILS % 55.8 % (38.7-80.0); RED CELL DISTRIBUTION WIDTH 13.9 % (11.7-14.4)
[2024-10-13] MEDS: SODIUM CHLORIDE 0.9% 1000ML 1,000 ML IV STA (00:27)
[2024-10-13 00:48] LABS: EST GLOMERULAR FILTRATION RATE 98.0 ML/MIN (>=60)
[2024-10-13] MEDS: KETOROLAC TROMETHAMINE 30 MG/ML VIAL IV STA (01:22)
[2024-10-13 01:43] LABS: OPIATES SCREEN,URINE POSITIVE (NEGATIVE)
[2024-10-13 01:44] LABS: AMPHETAMINES SCREEN,URINE NEGATIVE (NEGATIVE); CANNABINOIDS SCREEN,URINE POSITIVE (NEGATIVE); COCAINE SCREEN,URINE NEGATIVE (NEGATIVE); METHADONE SCREEN, URINE NEGATIVE (NEGATIVE)
[2024-10-13 01:45] LABS: LEUKOCYTE ESTERASE ,URINE TRACE (NEGATIVE); PROTEIN,URINE DIPSTICK NEGATIVE (NEGATIVE); URINE UROBILINOGEN 0.2 mg/dL (0.2 - 1)
[2024-10-13 01:57] LABS: EPITHELIAL CELLS,URINE FEW /LPF
[2024-10-13 02:24] VITALS: PULSE 59; RESP 17; TEMP 97.9
[2024-10-13 03:10] VITALS: BP 155/97; PULSE 61; RESP 17; TEMP 97.9; O2SAT 97
[2024-10-13] MEDS ORDERED: FLOMAX0.4 MG PO (03:11)
[2024-10-13] MEDS ORDERED: IOPAMIDOL 370 MG/ML 100 ML INFUS..BTL INJ ONE (05:52)
== END 2024-10-13 03:15 | disposition home or self-care (01) ==
LOC: ER 10-13 00:02
DX: R33.9 Retention of urine, unspecified (principal); G89.29 Other chronic pain; M54.9 Dorsalgia, unspecified; I10 Essential (primary) hypertension; J44.9 Chronic obstructive pulmonary disease, unspecified; F17.210 Nicotine dependence, cigarettes, uncomplicated; F12.90 Cannabis use, unspecified, uncomplicated; Z88.0 Allergy status to penicillin; Z96.651 Presence of right artificial knee joint; Z88.5 Allergy status to narcotic agent
CPT/HCPCS: 36415; 74177; 80053; 80307; 80320; 81001; 82550; 83690; 84484; 85025; 93005; 99284; J1885; J7030; Q9967

== ENCOUNTER 2024-10-22 02:46 | Emergency (ER) | payer MEDICARE ==
[~2024-10-22] VITALS: Ht 182.9 cm; Wt 90.7 kg
[~2024-10-22 02:46] MED LIST changes: +FLOMAX0.4 MG PO
[2024-10-22] MEDS: KETOROLAC TROMETHAMINE 60 MG/2 ML VIAL IM STA (03:21)
[2024-10-22 05:01] LABS: BASOPHILS % 0.5 % (0.0-1.0); EOSINOPHILS % 3.2 % (0.0-6.0); LYMPHOCYTES % 25.0 % (18.0-39.1); MONOCYTES % 11.9 % (4.4-11.3); NEUTROPHILS % 59.0 % (38.7-80.0); RED CELL DISTRIBUTION WIDTH 14.3 % (11.7-14.4)
[2024-10-22 05:16] LABS: EST GLOMERULAR FILTRATION RATE 98.0 ML/MIN (>=60)
[2024-10-22 05:22] VITALS: PULSE 68; RESP 15; TEMP 97.7
[2024-10-22 05:38] VITALS: BP 165/98; PULSE 70; RESP 16; TEMP 98.8; O2SAT 97
== END 2024-10-22 05:44 | disposition home or self-care (01) ==
LOC: ER 03:07
DX: R10.31 Right lower quadrant pain (principal); N40.1 Benign prostatic hyperplasia with lower urinary tract symptoms; R33.8 Other retention of urine; I10 Essential (primary) hypertension; J44.9 Chronic obstructive pulmonary disease, unspecified; K57.90 Diverticulosis of intestine, part unspecified, without perforation or abscess without bleeding; M54.9 Dorsalgia, unspecified; G89.29 Other chronic pain; Z96.651 Presence of right artificial knee joint
CPT/HCPCS: 36415; 51702; 74176; 80053; 83690; 85025; 99284; J1885; 51700